=== PATIENT | female | born 1995 | race Two or more races ===

== ENCOUNTER 2020-03-24 14:33 | Emergency (ER) | payer MEDICAID ==
[~2020-03-24] VITALS: Ht 160 cm; Wt 100.0 kg
--- NOTE | 2020-03-24 14:54 | NUR ---
GAS WELDER: PT REFUSED TO STAND FOR WEIGHT. PT REPORTS HER LEGS ARE GOING TO GIVE OUT.
[2020-03-24] MEDS ORDERED: FAMOTIDINE 20 MG/2 ML IV ONE (15:30)
[2020-03-24] MEDS ORDERED: MORPHINE SULFATE 4 MG/ML, 1ML IV PRN ×2 (15:30)
[2020-03-24] MEDS ORDERED: ONDANSETRON 2MG/ML, 2ML ONE (15:30)
[2020-03-24] MEDS ORDERED: ONDANSETRON 2MG/ML, 2ML IVPush ONE (15:30)
[2020-03-24] MEDS ORDERED: SODIUM CHLORIDE 0.9% 1,000ML IVBOLUS ONE (15:30)
[2020-03-24] MEDS ORDERED: MORPHINE SULFATE 4 MG/ML, 1ML ONE ×2 (15:31→18:00)
[2020-03-24] MEDS ORDERED: FAMOTIDINE 20 MG/2 ML ONE (15:32)
[2020-03-24] MEDS: MORPHINE SULFATE 4 MG/ML, 1ML IV PRN ×2 (15:41→18:02)
--- NOTE | 2020-03-24 15:45 | NUR ---
PT MEDICATED BY JOSÉ MIGUEL BORDEN.
[2020-03-24 15:53] LABS: BASOPHILS # (AUTO) 0.03 x10^3/uL (0-0.1); BASOPHILS % (AUTO) 0 % (0-1); EOSINOPHILS % (AUTO) 0 % (1-7); LYMPHOCYTES # (AUTO) 0.66 x10^3/uL (1-3.4); LYMPHOCYTES % (AUTO) 4 % (22-44); MD NO; MEAN CORPUSCULAR HEMOGLOBIN 27.2 pg (27.0-34.8); MEAN CORPUSCULAR HGB CONC 32.7 g/dL (32.4-35.8); MEAN PLATELET VOLUME 9.6 fL (7.4-10.4); MONOCYTES # (AUTO) 0.39 x10^3/uL (0.2-0.8); MONOCYTES % (AUTO) 3 % (2-9); NEUTROPHILS # (AUTO) 14.18 x10^3/uL (1.8-6.8); NEUTROPHILS % (AUTO) 93 % (42-75); PLATELET COUNT 306 x10^3/uL (130-400); RED CELL DISTRIBUTION WIDTH 15.3 % (9.6-15.2)
[2020-03-24 16:01] LABS: ALANINE AMINOTRANSFERASE 31 U/L (12-78); ALBUMIN 4.4 g/dL (3.4-5.0); ANION GAP 12 mmol/L (5-15); CALCIUM 9.6 mg/dL (8.5-10.1); CHLORIDE 102 mmol/L (98-107); CREATININE 0.76 mg/dL (0.55-1.02)
[2020-03-24 16:06] LABS: ALKALINE PHOSPHATASE 96 U/L (45-117)
--- NOTE | 2020-03-24 16:22 | NUR ---
Pt to imaging
[2020-03-24] MEDS ORDERED: OMNIPAQUE 350 MG/ML, 100ML BOTTLE ONE (16:34)
--- NOTE | 2020-03-24 16:49 | NUR ---
steady ambulation to bathroom.
[2020-03-24 17:09] LABS: MICROSCOPIC AUTO
[2020-03-24 17:43] LABS: AMPHETAMINE SCREEN, URINE Negative (Negative); BARBITURATE SCREEN, URINE Negative (Negative); BENZODIAZEPINE SCREEN, URINE Negative (Negative); CANNABINOID SCREEN, URINE Positive (Negative); COCAINE SCREEN, URINE Negative (Negative); METHADONE SCREEN, URINE Negative (Negative); OPIATE SCREEN, URINE Positive (Negative)
[2020-03-24] MEDS ORDERED: PROMETHAZINE 25 MG/ML, 1ML ONE (17:53)
[2020-03-24] MEDS ORDERED: MAALOX/HYOSCYAMINE/LIDOCAINE 45 ML BTL ONE (17:53)
--- NOTE | 2020-03-24 17:58 | NUR ---
MISHA WAYNE AT BEDSIDE FOR EVAL
[2020-03-24] MEDS ORDERED: MAALOX/HYOSCYAMINE/LIDOCAINE 45 ML BTL PO ONE (18:00)
[2020-03-24] MEDS ORDERED: PROMETHAZINE 25 MG/ML, 1ML IM ONE (18:00)
[2020-03-24] MEDS ORDERED: AZITHROMYCIN 500 MG TABLET ONE (18:28)
[2020-03-24] MEDS ORDERED: CEFTRIAXONE 250 MG ONE (18:28)
[2020-03-24] MEDS ORDERED: AZITHROMYCIN 500 MG TABLET PO ONE (18:30)
[2020-03-24] MEDS ORDERED: CEFTRIAXONE 250 MG IM ONE (18:30)
--- NOTE | 2020-03-24 18:55 | NUR ---
assumed care of tp. report from Sobia RICHTER. pt here for abd pain. pt has bene medicated and is now to have pelvic exam. setup at bedside completed
--- NOTE | 2020-03-24 19:30 | NUR ---
pt sleeping. easily arousable. pt reports that she is still havin pain but that it is significantly improved after meds. IV fluids infusing. no apparent distress at this time pt updated on POC
[2020-03-24] MEDS ORDERED: OMEP40CA42 PO (19:40)
[2020-03-24 20:30] LABS: WET PREP WBCS FEW (FEW)
[2020-03-24 20:39] LABS: CLUE CELLS NONE SEEN (NONE SEEN)
[2020-03-24 21:22] VITALS: BP 109/74
== END 2020-03-24 21:28 ==
LOC: ED 17:30
DX: K29.20 Alcoholic gastritis without bleeding (principal); R10.9 Unspecified abdominal pain; R11.2 Nausea with vomiting, unspecified; Z90.49 Acquired absence of other specified parts of digestive tract; Z90.89 Acquired absence of other organs
CPT/HCPCS: 36415; 71045; 74160; 80053; 80307; 81001; 83690; 84703; 85025; 87086; 87147; 87210; 87491; 87591; 87808; 93005; 96361; 96372; 96374; 96375; 99285; J0696; J2270; J2405; J2550; J3490; J7030; Q9967